=== PATIENT | male | born 1985 | race Caucasian/White ===

== ENCOUNTER → 2017-09-19 10:07 | Outpatient (CLI) | payer OTHER, SELFPAY ==
--- NOTE | 2017-09-19 10:18 | XR_ITS ---
XR tibia fibula RT 2V Ordering Physician: Melisa Sorensen Patient Age: 32 years: Male HISTORY: ITS.REASON: RT CARVER PAIN Right mid and lower leg pain. Hit on lung more. Small laceration mid tib-fib pain swelling and redness bruising TECHNIQUE: AP and lateral view of left lower leg. COMPARISON :None FINDINGS Moderately pronounced soft tissue swelling is seen anterior to the tibial most pronounced anterior to the proximal tibia. . The swelling extends medially more so than lateral This radiographically evident soft tissue swelling is most notable immediately adjacent, overlying tibia with only some mild edema in the more superficial subcutaneous fat. However I see no radiopaque foreign body or other findings. Findings may merely reflect bruising. No periosteal reaction or fracture No radiopaque foreign body evident.. The osseous tibia and fibula are intact. Normal mineralization. No bone lesion or findings no fracture. 2 views of ankle in the included on this lower leg study are grossly unremarkable \ IMPRESSION: Soft tissue swelling most evident anterior to the proximal tibia . No radiopaque foreign body. No osseous abnormalities. No fracture.
== END ==
PROVIDERS: PCP Nurse Practitioner; Visit Provider Nurse Practitioner
DX: M79.661 Pain in right lower leg (principal)
CPT/HCPCS: 73590

== ENCOUNTER → 2018-10-19 17:03 | Outpatient (CLI) | payer OTHER, SELFPAY ==
[2018-10-19 18:10] LABS: Basophils % 0.5 % (0.1-2.0); Eosinophils # 0.6 K/mm3 (0.0-0.4); Hematocrit 47.2 % (42.0-52.0); Hemoglobin 16.3 g/dL (14.1-18.0); Lymphocytes # 1.9 K/mm3 (0.7-4.5); Lymphocytes % 20.5 % (10-50); Mean Corpuscular HGB Conc 34.6 g/dL (31.8-35.4); Mean Corpuscular Hemoglobin 31.5 pg (27.0-31.2); Mean Corpuscular Volume 91.2 fl (80-94); Mean Platelet Volume 6.3 fl (7.4-10.4); Monocytes # 0.5 K/mm3 (0.1-1.0); Monocytes % 5.6 % (1.7-9.3); Neutrophils # 6.3 K/mm3 (1.8-7.8); Neutrophils % 67.3 % (37.0-80.0); Platelet Count 294 K/mm3 (142-424); Red Blood Count 5.18 M/mm3 (4.60-6.20); Red Cell Distribution Width 12.5 % (11.5-17.5); White Blood Count 9.4 K/mm3 (4.8-10.8)
[2018-10-19 18:59] LABS: Alanine Aminotransferase 55 U/L (12-78); Albumin/Globulin Ratio 1.1 (1.1-1.8); Alkaline Phosphatase 102 U/L (46-116); Anion Gap 12.3 mEq/L (5-15); Aspartate Amino Transferase 27 U/L (15-37); Bilirubin,Total 0.4 mg/dL (0.2-1.0); Blood Urea Nitrogen 13 mg/dL (7-18); Calcium 9.3 mg/dL (8.5-10.1); Carbon Dioxide 29 mmol/L (21.0-32.0); Chloride 102 mmol/L (98-107); Chol/HDL Ratio 5.1 (1-3.5); Cholesterol 197 mg/dL (140-200); Creatinine,Serum 1.12 mg/dL (0.70-1.30); Estimated Glomerular Filt Rate 76 ml/min (>60); GFR (African American) 91 ML/MIN (>60); Globulin 3.8 gm/dl (1.3-3.2); Glucose 63 mg/dL (74-106); HDL Cholesterol 39 mg/dL (27-67); LDL Cholesterol 114 mg/dL (0-130); Potassium 4.3 mmoL/L (3.5-5.1); Sodium 139 mmol/L (136-145); T4 (Thyroxine) 7.7 ug/dl (4.7-13.3); Thyroid Stimulating Hormone 1.19 uIU/ml (0.358-3.740); Total Protein,Serum 7.8 gm/dL (6.4-8.2); Triglycerides 218 mg/dL (30-200); VLDL Cholesterol 44 mg/dL (0-40)
[2018-10-21 10:04] LABS: Vitamin D 25 Hydroxy 24.4 ng/mL (30.0-100.0)
[2018-10-21 10:16] LABS: Vitamin B12 401 pg/mL (232-1245)
== END ==
PROVIDERS: Visit Provider Physician Assistant
DX: R53.83 Other fatigue (principal)
CPT/HCPCS: 80053; 80061; 82607; 82652; 84436; 84443; 85025

== ENCOUNTER → 2018-11-02 15:26 | Outpatient (CLI) | payer OTHER, SELFPAY ==
--- NOTE | 2018-11-02 15:33 | XR_ITS ---
PROCEDURE: XR FOOT LT MIN 3V CLINICAL INDICATION: injury Posttraumatic pain COMPARISON: No exams were available for comparison FINDINGS: No fracture or dislocation. No lytic or blastic change. There is normal mineralization. The joint spaces are well-preserved. No significant degenerative/arthritic changes. No erosive changes evident. Other findings:None. IMPRESSION: No acute findings. Dictated by: Lonnie Villa MD 11/02/2018 16:35 Signed by: <Electronically signed by Lonnie Villa MD in OV> 11/02/2018 16:35
== END ==
PROVIDERS: PCP Physician Assistant; Visit Provider Physician Assistant
DX: S99.922A Unspecified injury of left foot, initial encounter (principal)
CPT/HCPCS: 73630

== ENCOUNTER 2020-05-09 16:54 | Emergency (ER) | payer OTHER, SELFPAY ==
[2020-05-09 17:25] VITALS: BP 148/91; PULSE 92; RESP 21; TEMP 38.2; O2SAT 98; BMI 33.8
[2020-05-09 17:46] LABS: UTC Strep Screen (Rapid) Negative (Negative)
[2020-05-09 17:47] LABS: UTC Influenza A Antigen Negative (Negative); UTC Influenza B Antigen Negative (Negative)
--- NOTE | 2020-05-09 17:49 | HMH.EDUTC ---
[facility] [place] Clinical Impression: Otitis media Qualifiers: Otitis media type: unspecified Laterality: left Qualified Code(s): H66.92 - Otitis media, unspecified, left ear Nausea & vomiting Qualifiers: Vomiting type: unspecified Vomiting Intractability: unspecified Qualified Code(s): R11.2 - Nausea with vomiting, unspecified Disposition: Home, Self-Care Condition on Discharge: Good Instructions: Middle Ear Infection, DI for Nausea -- Adult, DI for Fever (Symptom) -- Adult, DI for COVID-19 (Suspected or Confirmed ), Coronavirus Disease 2019 Additional Instructions: ? Avoid fruit juices, as these do not replace minerals and can actually increase diarrhea. ? Children and adults can use sports drinks to replenish electrolytes. Younger children and infants should use products formulated for children, like oral rehydration solutions. ? Eat food in small amounts and let your stomach recover. ? Get lots of rest. You may feel tired or weak. ? No greasy or fried foods for the next 24-48 hours BRAT diet Bananas Rice Apples and Adams ? Make sure to drink plenty of liquids ? Return if needed ? Straight to ER if any life threatening symptoms ? Zofran as prescribed ? Follow up with family doctor in the next 48-72 hours if no improvement or any worsening of symptoms *Monitor Temp, Over the counter Motrin or Tylenol as directed/as needed Tylenol every 4 hours and Motrin every 6 hours (as long as your family doctor has told you that you can take it) for fever or pain. and straight to ER if unable to lower temp less than 101.0 after medication given *Warm salt water gargles may help to soothe the throat *Throat Lozenges *Warm fluids like tea with honey may help to soothe the throat *Sleep elevated *Humidifier/Vaporizer Your throat swab was sent for culture. Those results are typically sent to your primary care. Be sure to follow up in 2-3 days with your family doctor/primary care physician if no improvement so they can review those result and treat if necessary. If you don?t have a primary care doctor, I recommend you get one but in the mean time, you will have to return to a walk in clinic Follow up IMMEDIATELY for new or worsening symptoms or no Noticeable improvement over the next 48-72 hours. 911 for difficulty breathing or swallowing You were tested for today for COVID19 your test result should be back in the next 24-48 hours, you may call to the [facility] to see if your test results are back in the next 48 hours [phone] [facility] hours are 9am-9pm You was given a handout with instructions for Self Quarantine and Self isolation for while you wait on test results and what to do if they are positive If you are positive the Health Dept will be contacting you also Prescriptions: Cefdinir [Omnicef 300mg Capsule] 300 mg PO BID #20 cap Transmission Status: Received by [facility] Ondansetron [Zofran 4mg ODT] 4 mg PO TIDP PRN #12 tab PRN Reason: Nausea Transmission Status: Received by [facility] Referrals: Hailee Trevino PA [Primary Care Provider] - As needed Forms: Work/School Release Time of Disposition: 18:38 Medical Decision Making - Ángel Inquiry Pt receiving controlled substance: No Ángel was queried for this patient: No Vital Signs: 05/09/20 17:25 05/09/20 18:36 Temperature 100.7 F H 100 F H Temperature Source Oral Pulse Rate 80 Pulse Rate [Right] 92 H Respiratory Rate 21 16 Blood Pressure 123/67 Blood Pressure [Right Arm] 148/91 H Blood Pressure Mean [Right Arm] 110 Blood Pressure Source [Right Arm] Automatic Cuff Blood Pressure Position [Right Arm] Sitting 02 Sat by Pulse Oximetry 98 Oxygen Delivery Method Room Air - Lab Data Lab results reviewed: Yes: I reviewed the patient's lab results. Lab Results 05/09/20 17:15: Influenza Type A Ag Negative, Influenza Type B Ag Negative 05/09/20 17:15: Strep Scn Rapid Clinic Negative Orders (Tests/Meds): ED MEDICATIONS Discontin
--- NOTE | 2020-05-09 18:18 | PC.NURSE ---
WENT TO CHECK ON PT HE WAS PALE AND DIAPHORETIC. PT STATES HE FEELS LIKE HES GOING TO VOMIT AND PASS OUT. BP WAS 108/62 WITH HR OF 69 O2 97% PT STATES HE WAS GAGGING ON HIS ANNABELLA 8 RIGHT BEFORE ALL OF THIS HAPPENED. PROVIDER BELIEVES HE VAGALED DOWN. BP IS NOW 122/59 HR 56 TEMP 100.4 AFTER ZOFRAN ADMIN. PT IS PINKING UP AND STATES HE IS FEELING MUCH BETTER.
[2020-05-09 18:36] VITALS: BP 123/67; PULSE 80; RESP 16; TEMP 37.7
== END 2020-05-09 18:43 | disposition home or self-care (01) ==
PROVIDERS: Emergency Provider Nurse Practitioner; PCP Physician Assistant
DX: Z20.822 Contact with and (suspected) exposure to COVID-19 (principal); H66.92 Otitis media, unspecified, left ear; F41.8 Other specified anxiety disorders; Z79.899 Other long term (current) drug therapy; Z88.0 Allergy status to penicillin; Z88.2 Allergy status to sulfonamides
CPT/HCPCS: 87804; 87880; 99202; G0463; U0003

== ENCOUNTER → 2020-11-29 17:28 | Outpatient (CLI) | payer OTHER, SELFPAY | PROVIDERS: Visit Provider Physician Assistant | DX: Z20.822 Contact with and (suspected) exposure to COVID-19 (principal); R69 Illness, unspecified | CPT/HCPCS: C9803; U0003; U0005 ==

== ENCOUNTER → 2020-12-01 08:33 | Outpatient (CLI) | payer OTHER, SELFPAY | PROVIDERS: PCP Physician Assistant; Visit Provider Nurse Practitioner | DX: Z20.822 Contact with and (suspected) exposure to COVID-19 (principal) | CPT/HCPCS: C9803; U0003; U0005 ==

== ENCOUNTER 2020-12-21 15:06 | Emergency (ER) | payer OTHER, SELFPAY ==
[2020-12-21 15:29] VITALS: BP 144/97; PULSE 93; RESP 20; O2SAT 97; BMI 33.0
--- NOTE | 2020-12-21 17:27 | HMH.EDUTC ---
[facility] [place]ression: Need for Tdap vaccination Laceration of right upper extremity Qualifiers: Encounter type: initial encounter Qualified Code(s): S41.111A - Laceration without foreign body of right upper arm, initial encounter Disposition: Home, Self-Care Condition on Discharge: Good Instructions: How to Care for a Laceration After Repair, DI for Laceration Repair Additional Instructions: Keep the wound clean and dry. Keep a dressing on it if you are going to be getting it dirty. Watch the for signs of infection, such as redness, swelling, drainage, fever. etc. take tylenol or ibuprofen for pain. Follow up with your regular doctor. Return in 7 to 10 days to have the sutures removed. GO TO THE ER FOR ANY WORSENING SYMPTOMS OR CONCERNS. Prescriptions: Cefdinir [Omnicef 300mg Capsule] 300 mg PO BID #20 cap Transmission Status: Received by [facility] Referrals: Hailee Trevino PA [Primary Care Provider] - Time of Disposition: 17:29 Medical Decision Making - Medical Records Medical records reviewed: No: I reviewed the patient's medical records. - Ángel Inquiry Pt receiving controlled substance: No Vital Signs: 12/21/20 15:29 12/21/20 17:52 Temperature 98 F Pulse Rate 93 H Pulse Rate [Left] 93 H Respiratory Rate 20 18 Blood Pressure 144/97 H Blood Pressure [Right Arm] 144/97 H Blood Pressure Mean [Right Arm] 112 02 Sat by Pulse Oximetry 97 Orders (Tests/Meds): ED MEDICATIONS Discontinued Medications Generic Name Dose Route Start Last Admin Trade Name Freq PRN Reason Stop Dose Admin Lidocaine HCl 5 ml 12/21/20 17:04 12/21/20 17:04 Lidocaine 1% 5ml Pf Vial IJ 12/21/20 17:05 5 ml ONCE ONE Administration [facility] [place] - General Stated complaint: AO [id number] Lac r arm Time Seen by Provider: 12/21/20 16:00 Mode of Arrival: Ambulatory Source of Information: Patient Limitations: No Limitations Description of Symptoms (Recalled from Triage Doc. by RN): pt sliced his R forearm on a piece of metal. pt has a lac with a skin flap. 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 His tetanus immunization is not up to date. - Related Data Previous Rx's Medication Instructions Recorded cholecalciferol (vitamin D3) 25 1,000 unit PO DAILY #90 cap 10/21/18 mcg (1,000 unit) capsule ergocalciferol (vitamin D2) 1,250 50,000 unit PO QWEEK #14 cap 10/21/18 mcg (50,000 unit) capsule azelastine-fluticasone 137 mcg-50 1 spray INTRANASAL BID #23 g 05/10/19 mcg/spray nasal spray azithromycin 250 mg tablet See Rx Instructions PO .COMPLEX #6 12/28/19 tab fluoxetine 10 mg tablet See Rx Instructions .ROUTE 01/26/20 .COMPLEX #90 tab Cefdinir [Omnicef 300mg Capsule] 300 mg PO BID #20 cap 05/09/20 Ondansetron [Zofran 4mg ODT] 4 mg PO TIDP PRN #12 tab 05/09/20 erythromycin 5 mg/gram (0.5 %) eye 1 applic OPHTHALMIC BID 7 Days #1 g 06/07/20 ointment albuterol sulfate 1.25 mg/3 mL 1.25 mg INHALATION QID PRN #90 ml 11/29/20 solution for nebulization guaifenesin 1,200 mg tablet, 1,200 mg PO BID #20 tab 11/29/20 extended release 12 hr prednisone 20 mg tablet 20 mg PO BID #10 tab 11/29/20 Cefdinir [Omnicef 300mg Capsule] 300 mg PO BID #20 cap 12/21/20 Allergies Allergy/AdvReac Type Severity Reaction Status Date / Time Penicillins [PENICILLINS] Allergy Unknown Verified 11/29/20 16:02 Sulfa (Sulfonamide Allergy Unknown Verified 11/29/20 16:02 Antibiotics) [SULFA (SULFONAMIDE ANTIBIOTICS)] - Worker's Comp Is this a Worker's Comp case?: No
[2020-12-21 17:52] VITALS: BP 144/97; PULSE 93; RESP 18; TEMP 36.6
== END 2020-12-21 17:54 | disposition home or self-care (01) ==
LOC: ER 15:27 → UTC 15:28
PROVIDERS: Emergency Provider Nurse Practitioner Family; PCP Physician Assistant
DX: S41.111A Laceration without foreign body of right upper arm, initial encounter (principal); Z23 Encounter for immunization; Z88.0 Allergy status to penicillin; Z88.2 Allergy status to sulfonamides
CPT/HCPCS: 12001; 96372; 99202; G0463

== ENCOUNTER → 2021-01-01 13:12 | Outpatient (CLI) | payer OTHER, SELFPAY | PROVIDERS: PCP Physician Assistant; Visit Provider Nurse Practitioner | DX: Z20.822 Contact with and (suspected) exposure to COVID-19 (principal); U07.1 COVID-19 | CPT/HCPCS: C9803; U0003; U0005 ==

== ENCOUNTER → 2021-03-29 15:04 | Outpatient (CLI) | payer OTHER, SELFPAY | PROVIDERS: Visit Provider Nurse Practitioner | DX: U07.1 COVID-19 (principal) | CPT/HCPCS: C9803; U0003; U0005 ==

== ENCOUNTER 2021-09-15 20:43 | Emergency (ER) | payer OTHER, SELFPAY ==
[2021-09-15 20:43] VITALS: BP 135/105; PULSE 72; RESP 16; TEMP 36.8; O2SAT 97; BMI 35.9
--- NOTE | 2021-09-15 20:43 | PC.NURSE ---
ER speaking with pt at this time
--- NOTE | 2021-09-15 20:45 | ECG_ITS ---
APPROVED REPORT Exam: Resting ECG HR:69 bpm ECG Measurements Heart Rate 69 AXES AK 144 P 28 QRSd 88 QRS 31 QT 382 T 43 QTc 402 Conclusion SINUS RHYTHM WITH OCCASIONAL VENTRICULAR PREMATURE COMPLEXES BORDERLINE ECG UNCONFIRMED REPORT Electronically signed by : Eduardo Birmingham MD 09/17/2021 14:03:33
--- NOTE | 2021-09-15 20:46 | HMH.EDGENADL ---
ED Disposition Clinical Impression: Palpitations, Ventricular premature beats Disposition: Home, Self-Care Condition on Discharge: Fair Additional Instructions: Avoid all sources of caffeine. Return to the emergency department if you feel worse in any way. Follow-up with your primary care doctor to discuss whether you should increase your propranolol dose. Referrals: Provider,Referral, [Referring] - - Critical Care Critical Care Time: No Attestation: On 09/15/21, the high probability of a clinically significant, sudden or life threatening deterioration of the following system(s) required my full and direct attention, intervention and personal management. The time I documented below is in addition to time spent performing reported procedures but includes the following listed in this critical care notation. Medical Decision Making - Medical Records Medical records reviewed: Yes: I reviewed the patient's medical records. - Ángel Inquiry Pt receiving controlled substance: No Vital Signs: 09/15/21 20:43 Temperature 98.2 F Temperature Source Oral Pulse Rate [Left] 72 Respiratory Rate 16 Blood Pressure [Right Arm] 135/105 H Blood Pressure Mean [Right Arm] 115 Blood Pressure Source [Right Arm] Automatic Cuff 02 Sat by Pulse Oximetry 97 Oxygen Delivery Method Room Air - Lab Data Lab Results 09/15/21 20:45: WBC 8.6, RBC 5.30, Hgb 16.8, Hct 50.7, MCV 95.7 H, MCH 31.7 H, MCHC 33.1, RDW 12.7, Plt Count 295, MPV 6.9 L, Neut % (Auto) 67.0, Lymph % (Auto) 20.0, [place] % (Auto) 5.8, Eos % (Auto) 5.5, Baso % (Auto) 1.7, Neut # (Auto) 5.7, Lymph # (Auto) 1.7, [place] # (Auto) 0.5, Eos # (Auto) 0.5 H, Baso # (Auto) 0.1 09/15/21 20:45: Sodium 137, Potassium 4.0, Chloride 102, Carbon Dioxide 29, Anion Gap 10.0, BUN 15, Creatinine 1.00, Estimated Creat Clear 164, Estimated GFR 85, Est GFR ( Amer) 102, Glucose 120 H, Calcium 9.0, Magnesium 2.0, Total Bilirubin 0.3, AST 50, ALT 61, Alkaline Phosphatase 97, Total Protein 7.5, Albumin 4.2, Globulin 3.3 H, Albumin/Globulin Ratio 1.3 Result diagrams: 09/15/21 20:45 09/15/21 20:45 Orders (Tests/Meds): ORDERS Category Date Time Status ECG Request by /Maximo Stat Y 09/15/21 20:49 Ordered - ECG Data Tracing #1 I reviewed this ECG and interpreted as documented below: Patient is EKG was performed at 2040 1 PM. It shows a normal sinus rhythm with a ventricular rate of 69 bpm. There are occasional premature ventricular contractions. Otherwise the ECG is normal. Normal intervals, normal axes, no evidence of ischemia. Normal Sinus Rhythm: Yes Arrhythmias present: PVC's Medical Decision Narrative: The patient's work-up in the emergency department did not reveal any life-threatening or dangerous conditions. His electrolytes are unremarkable. His glucose is mildly elevated at 120. Patient's EKG shows PVCs. Patient denies chest pain or shortness of breath. I feel that the patient can be safely discharged home in stable condition with instructions to follow-up with his primary care doctor to discuss whether he needs to use his propranolol dose. Also advised the patient to stop taking any caffeine containing foods or drinks. General Adult HPI - General Stated complaint: chest pain Time Seen by Provider: 09/15/21 20:46 - History of Present Illness HPI narrative: The patient presents to the emergency department complaining of PVC that are increasing in frequency. The patient has a history of this. He also has a history of anxiety. He takes propranolol for both. He took his last propranolol dose today around 5 PM. He denies any chest pain or other complaints. - Related Data Previous Rx's Medication Instructions Recorded cholecalciferol (vitamin D3) 25 1,000 unit PO DAILY #90 cap 10/21/18 mcg (1,000 unit) capsule ergocalciferol (vitamin D2) 1,250 50,000 unit PO QWEEK #14 cap 10/21/18 mcg (50,000 unit) capsule azelastine-fluticasone 137 m
[2021-09-15 20:54] LABS: Basophils # 0.1 K/mm3 (0-0.2); Basophils % 1.7 % (0.1-2.0); Eosinophils # 0.5 K/mm3 (0.0-0.4); Eosinophils % 5.5 % (0.1-12.0); Hematocrit 50.7 % (42.0-52.0); Hemoglobin 16.8 g/dL (14.1-18.0); Lymphocytes # 1.7 K/mm3 (0.7-4.5); Mean Corpuscular HGB Conc 33.1 g/dL (31.8-35.4); Mean Corpuscular Hemoglobin 31.7 pg (27.0-31.2); Mean Corpuscular Volume 95.7 fl (80-94); Mean Platelet Volume 6.9 fl (7.4-10.4); Monocytes # 0.5 K/mm3 (0.1-1.0); Monocytes % 5.8 % (1.7-9.3); Neutrophils # 5.7 K/mm3 (1.8-7.8); Platelet Count 295 K/mm3 (142-424); Red Cell Distribution Width 12.7 % (11.5-17.5); White Blood Count 8.6 K/mm3 (4.8-10.8)
[2021-09-15 21:03] LABS: Alanine Aminotransferase 61 U/L (12-78); Albumin Level 4.2 g/dl (3.5-5.0); Albumin/Globulin Ratio 1.3 (1.1-1.8); Alkaline Phosphatase 97 U/L (38-126); Aspartate Amino Transferase 50 U/L (17-59); Bilirubin,Total 0.3 mg/dl (0.2-1.3); Blood Urea Nitrogen 15 mg/dl (9-20); Carbon Dioxide 29 mmol/L (22.0-30.0); Chloride 102 mmol/L (98-107); Creatinine Clearance Estimated 164 mL/min (50-200); Estimated Glomerular Filt Rate 85 ml/min (>60); GFR (African American) 102 ML/MIN (>60); Globulin 3.3 g/dL (1.3-3.2); Glucose 120 mg/dl (74-100); Sodium 137 mmol/L (136-145); Total Protein,Serum 7.5 g/dl (6.3-8.2)
[2021-09-15 21:38] VITALS: BP 124/68; PULSE 66; RESP 18; TEMP 36.7; O2SAT 97
== END 2021-09-15 21:39 | disposition home or self-care (01) ==
PROVIDERS: Emergency Provider Emergency Medicine; PCP Internal Medicine Adolescent Medicine
DX: I49.3 Ventricular premature depolarization (principal); F41.9 Anxiety disorder, unspecified; R07.9 Chest pain, unspecified; R00.2 Palpitations
CPT/HCPCS: 80053; 83735; 85025; 93005; 99283

== ENCOUNTER 2022-01-29 14:54 | Emergency (ER) | payer OTHER, SELFPAY ==
--- NOTE | 2022-01-29 15:03 | XR_ITS ---
FINAL REPORT CLINICAL HISTORY: HIT THUMB WITH HAMMER, small lac across thumb nail. bleeding and swelling, pain FINDINGS: LEFT HAND 3 views of the left hand were obtained. There is a nondisplaced fracture of the tuft of the 1st distal phalanx. Visualized joint spaces are normally aligned. Soft tissues are unremarkable. IMPRESSION: Nondisplaced fracture of the tuft of the 1st distal phalanx. Reviewed, Interpreted and Dictated by Milton Reed III, MD Transcribed by Luz Art Authenticated and [facility]
[2022-01-29 16:36] VITALS: BP 0/0; PULSE 0; RESP 0; TEMP -17.7; TEMP 0
== END 2022-01-29 16:37 | disposition left against medical advice (07) ==
LOC: UTC 14:58
PROVIDERS: Emergency Provider Nurse Practitioner; PCP Family Medicine
DX: S61.012A Laceration without foreign body of left thumb without damage to nail, initial encounter (principal); Z53.21 Procedure and treatment not carried out due to patient leaving prior to being seen by health care provider; F32.A Depression, unspecified; F41.9 Anxiety disorder, unspecified; Z79.51 Long term (current) use of inhaled steroids; Z79.52 Long term (current) use of systemic steroids; Z79.899 Other long term (current) drug therapy; Z88.0 Allergy status to penicillin; Z88.2 Allergy status to sulfonamides; Y92.019 Unspecified place in single-family (private) house as the place of occurrence of the external cause
CPT/HCPCS: 73130

== ENCOUNTER 2024-04-05 11:52 | Outpatient (CLI) | payer OTHER, SELFPAY ==
[2024-04-05 18:23] LABS: Basophils # 0.1 K/mm3 (0-0.2); Basophils % 0.6 % (0.1-2.0); Eosinophils # 0.6 K/mm3 (0.0-0.4); Eosinophils % 6.6 % (0.1-12.0); Hematocrit 48.4 % (42.0-52.0); Hemoglobin 16.3 g/dL (14.1-18.0); Lymphocytes # 2.2 K/mm3 (0.7-4.5); Lymphocytes % 22.6 % (10-50); Mean Corpuscular HGB Conc 33.7 g/dL (31.8-35.4); Mean Corpuscular Hemoglobin 30.5 pg (27.0-31.2); Mean Corpuscular Volume 90.6 fl (80-94); Mean Platelet Volume 8.8 fl (7.4-10.4); Monocytes # 0.8 K/mm3 (0.1-1.0); Monocytes % 7.8 % (1.7-9.3); Neutrophils % 62.1 % (37.0-80.0); Platelet Count 299 K/mm3 (142-424); Red Blood Count 5.34 M/mm3 (4.60-6.20); Red Cell Distribution Width 11.9 % (11.5-17.5); White Blood Count 9.7 K/mm3 (4.8-10.8)
[2024-04-05 19:33] LABS: Albumin Level 4.5 g/dl (3.5-5.0); Chloride 98 mmol/L (98-107); Sodium 136 mmol/L (136-145)
[2024-04-05 19:34] LABS: Potassium 4.6 mmoL/L (3.5-5.1)
[2024-04-05 19:36] LABS: Alanine Aminotransferase 52 U/L (12-78); Albumin/Globulin Ratio 1.3 (1.1-1.8); Alkaline Phosphatase 98 U/L (38-126); Anion Gap 13.6 mEq/L (5-15); Aspartate Amino Transferase 41 U/L (17-59); Bilirubin,Total 0.4 mg/dl (0.2-1.3); Blood Urea Nitrogen 16 mg/dl (9-20); Calcium 9.5 mg/dl (8.4-10.2); Carbon Dioxide 29 mmol/L (22.0-30.0); Estimated Glomerular Filt Rate 83 ml/min (>60); GFR (African American) 101 ML/MIN (>60); Globulin 3.4 g/dL (1.3-3.2); Glucose 95 mg/dl (74-100); Total Protein,Serum 7.9 g/dl (6.3-8.2)
[2024-04-05 19:46] LABS: 25-OH Vitamin D, Total 20.9 ng/mL (30-100)
[2024-04-05 19:57] LABS: Free T4 (Free Thyroxine) 1.12 ng/dl (0.78-2.19)
[2024-04-05 20:10] LABS: Thyroid Stimulating Hormone 1.89 uIU/mL (0.465-4.68)
[2024-04-07 08:28] LABS: Testosterone,Total 372 ng/dL (264-916)
== END 2024-04-05 23:59 | disposition home or self-care (01) ==
LOC: LAB.DROPOF 04-06 10:55
PROVIDERS: PCP Family Medicine; Visit Provider Family Medicine
DX: R00.2 Palpitations (principal); R03.0 Elevated blood-pressure reading, without diagnosis of hypertension; E55.9 Vitamin D deficiency, unspecified; F32.0 Major depressive disorder, single episode, mild
CPT/HCPCS: 80053; 82306; 84403; 84439; 84443; 85025

== ENCOUNTER 2024-08-30 10:13 | Outpatient (CLI) | payer OTHER, SELFPAY ==
[2024-08-30 19:16] LABS: Albumin Level 3.8 g/dl (3.5-5.0); Chloride 101 mmol/L (98-107); Potassium 4.5 mmoL/L (3.5-5.1); Sodium 139 mmol/L (136-145)
[2024-08-30 19:19] LABS: Alanine Aminotransferase 47 U/L (12-78); Albumin/Globulin Ratio 1.1 (1.1-1.8); Alkaline Phosphatase 95 U/L (38-126); Anion Gap 14.5 mEq/L (5-15); Aspartate Amino Transferase 38 U/L (17-59); Bilirubin,Total 0.5 mg/dl (0.2-1.3); Blood Urea Nitrogen 15 mg/dl (9-20); Calcium 8.7 mg/dl (8.4-10.2); Carbon Dioxide 28 mmol/L (22.0-30.0); Chol/HDL Ratio 7.1 (1-3.5); Cholesterol 248 mg/dl (140-200); Estimated Glomerular Filt Rate 83 ml/min (>60); GFR (African American) 101 ML/MIN (>60); Globulin 3.4 g/dL (1.3-3.2); Glucose 116 mg/dl (74-100); HDL Cholesterol 35 mg/dl (40-60); Total Protein,Serum 7.2 g/dl (6.3-8.2); Triglycerides 245 mg/dl (30-150); VLDL Cholesterol 49 mg/dL (0-40)
[2024-08-30 19:30] LABS: Direct LDL Cholesterol 170.11 mg/dL (100-129)
== END 2024-08-30 23:59 | disposition home or self-care (01) ==
LOC: LAB.DROPOF 09-01 10:13
PROVIDERS: PCP Family Medicine; Visit Provider Family Medicine
DX: I10 Essential (primary) hypertension (principal)
CPT/HCPCS: 80053; 80061